=== PATIENT | female | born 1975 | race Hispanic/Latino ===

== ENCOUNTER → 2017-12-06 | Outpatient (CLI) | payer BC | LOC: MAMMO 13:50 | PROVIDERS: ATTEND Obstetrics & Gynecology | DX: Z12.31 Encounter for screening mammogram for malignant neoplasm of breast (principal) | CPT/HCPCS: 77067 ==

== ENCOUNTER → 2018-11-17 | Day surgery (SDC) | payer BC ==
[2018-11-10 16:09] LABS: BILIRUBIN,URINE NEGATIVE (NEGATIVE); CLARITY,URINE SL CLOUDY (CLEAR); COLOR,URINE YELLOW (YELLOW); KETONES,URINE NEGATIVE (NEGATIVE); LEUKOCYTE ESTERASE ,URINE SMALL (NEGATIVE); NITRITE,URINE NEGATIVE (NEGATIVE); PROTEIN,URINE DIPSTICK NEGATIVE (NEGATIVE); URINE UROBILINOGEN 0.2 mg/dL (0.2 - 1)
[2018-11-10 16:10] LABS: BASOPHILS # (AUTO) 0.1 (0.0-0.1); BASOPHILS % 0.9 % (0.0-1.0); EOSINOPHILS # (AUTO) 0.1 (0.0-0.4); EOSINOPHILS % 1.2 % (0.0-6.0); HEMATOCRIT 42.9 % (34.2-44.1); HEMOGLOBIN 13.8 g/dL (12.0-16.0); LYMPHOCYTES # (AUTO) 3.1 (1.0-3.2); LYMPHOCYTES % 34.9 % (18.0-39.1); MEAN CORPUSCULAR HEMOGLOBIN 27.8 pg (28-32); MEAN CORPUSCULAR HGB CONC 32.2 g/dL (31-35); MEAN CORPUSCULAR VOLUME 86.3 fL (81-99); MONOCYTES # (AUTO) 0.5 (0.2-0.8); MONOCYTES % 5.2 % (4.4-11.3); NEUTROPHILS # (AUTO) 5.1 (2.1-6.9); NEUTROPHILS % 57.5 % (38.7-80.0); PLATELET COUNT 310 x10e3/uL (140-360); RED BLOOD COUNT 4.97 x10e6/uL (3.6-5.1); RED CELL DISTRIBUTION WIDTH 13.9 % (11.7-14.4)
[2018-11-10 16:29] LABS: ALANINE AMINOTRANSFERASE 18 IU/L (0-55); ALBUMIN 3.7 g/dL (3.5-5.0); ALBUMIN/GLOBULIN RATIO 0.8 (0.8-2.0); ALKALINE PHOSPHATASE 79 IU/L (40-150); ANION GAP 14.7 mmol/L (8-16); BLOOD UREA NITROGEN 12 mg/dL (7-26); BUN/CREATININE RATIO 18 (6-25); CALCIUM 9.8 mg/dL (8.4-10.2); CARBON DIOXIDE 25 mmol/L (22-29); CHLORIDE 103 mmol/L (98-107); CREATININE, SERUM 0.68 mg/dL (0.57-1.11); EST GLOMERULAR FILTRATION RATE > 60 ML/MIN (60-); GLUCOSE 83 mg/dL (74-118); POTASSIUM 3.7 mmol/L (3.5-5.1); SODIUM 139 mmol/L (136-145)
[~2018-11-17] MED LIST: ACETAMINOPHEN 1000 MG/100 ML IV ONE; BUPIVACAINE 0.25%/EPI 30ML SDV INJ ONE; DESFLURANE 240 ML BTL INH ONE; FENTANYL CITRATE/PF 100MCG/2 ML INJ ONE; IOPAMIDOL 610MG/1ML 300 MG/ML VIAL IV ONE; LIDOCAINE HCL 2% LOCAL INJ 5 ML SDV VIAL INJ ONE; METOCLOPRAMIDE HCL 10 MG/2ML VIAL ONE; MIDAZOLAM HCL 2 MG/2 ML VIAL ONE; ONDANSETRON HCL INJ 2MG/ML 2ML 2 MG/ML VIAL ONE; PROMETHAZINE HCL (IM) 25 MG/ML VIAL ONE; PROPOFOL IV EMULSION 10 MG/ML 20 ML VIAL ONE; ROCURONIUM BROMIDE 10 MG/ML 5ML VIAL ONE; VITAMIN B12 PO; VITAMIN C PO; VITAMIN D PO
--- OUTSIDE RECORDS SUMMARY | 2018-11-17 05:22 | XMS REPORT ---
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 Chriss Chawla MD Special investigations and examinations - Gynecological examination Cervix, screening for malignant neoplasm V76.2 Active Chriss Chawla MD Screening for malignant neoplasms of the cervix Mammogram not high risk screening V76.12 Active Chriss Chawla MD Other screening mammogram Screening examination for venereal disease V74.5 Active Chriss Chawla MD Screening examination for venereal disease Medication List Medication Instructions Start Date Stop Date Generic Name NDC Status Provider Patient Instruction No Drug Therapy Prescribed - none known did ask Paulina Erickson CMA Vital Signs Date Name Value Unit Range Description blood pressure, diastolic 75 mm[Hg] BP cruz blood pressure, systolic 113 mm[Hg] BP sys height E&M 65 [in_us] Bdy height pulse rate E&M 65 /min Heart rate respiratory rate E&M 18 /min Resp rate temperature E&M 98.5 [degF] Body temperature weight E&M 234.38 [lb_av] Weight Measured Diagnostic Results Date Name Value Unit Range Description Lab Report: Ct, Ng, Trich vag by CARLOS - Lab chlamydia DNA probe Negative Negative Lab Report: Ct, Ng, Trich vag by CARLOS - Microbiology Neisseria gonorrhoeae DNA probe Negative Negative Procedures Code Procedure Name Date Entry Date Standard Description CPT-47997 Est Patient Well Exam (40 - 64 Yrs) - 38727 08:50:02 CDT CPT-35889 New Patient Well Exam (40 - 64 Yrs) - 99398 09:18:12 CDT
--- OUTSIDE RECORDS SUMMARY | 2018-11-17 05:22 | XMS REPORT ---
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 Allergies, Adverse Reactions, Alerts This patient has no known allergies or adverse reactions. Medications This patient has no known medications. Results Test Description Test Time Test Comments Text Results Atomic Results Result Comments MAMMOGRAPHY DIGITAL SCR BILAT 2017-12-06 14:43:00 [place] [address] Patient Name: LINDSEY MAX MR #: [id number] : 1975 Age/Sex: 42/F Req #: [id number] [facility] Physician: Ordered by: DORON QUINONES MD Report #: [id number] Location: MAMMO Room/Bed: Procedure: [id number] MG/MAMMOGRAPHY DIGITAL SCR BILAT Exam Date: 12/06/17 Exam Time: 1400 REPORT STATUS: Signed #[id number] - [id number] #BILATERAL DIGITAL SCREENING MAMMOGRAM WITH CAD: 12/06/2017 CLINICAL: Routine screening. Comparison is made to exams dated: 11/25/2016 mammogram and 04/02/2013 mammogram - [facility]. Current study contains 4 films. The tissue of both breasts is heterogeneously dense. This may lower the sensitivity of mammography. Current study was also evaluated with a Computer Aided Detection (CAD) system. There are benign calcifications in both breasts. No significant masses, calcifications, or other findings are seen in either breast. There has been no significant interval change. IMPRESSION: BENIGN There is no mammographic evidence of malignancy. A 1 year screening mammogram is recommended. The patient will be notified by letter of the resu lts. Guera mendez/john:12/12/2017 08:22:37 Transport Analyst: Margo JOY)(M), [facility] letter sent: Compared to Prior B9 Mammogram BI-RADS: 2 Benign Dictated By: GUERA KEEN DO 1 Transcribed By: JOHN on 12/12/17821 COPY TO: DORON QUINONES MD
--- NOTE | 2018-11-17 09:49 | NUR ---
SPIRITUAL CARE - Pre-Surgery Assessment: Pt in bed. Pt's at bedside. Pt reported supportive attention from family and friends. Intervention: I provided pastoral presence, hospitality, and sympathetic listening. I acquainted pt with availability of leasing machine tender while hospitalized. Outcome: Pt expressed appreciation for visit. No need for follow up indicated at this time. JESSE Elamlain Spiritual Care Department O: [phone] Pager: [phone] ([phone] number calling from)
--- NOTE | 2018-11-17 11:17 | Operative Report ---
DATE OF PROCEDURE: SURGEON: Ricardo Angel MD PREOPERATIVE DIAGNOSES: Biliary colic, cholelithiasis, morbid obesity. POSTOPERATIVE DIAGNOSES: Biliary colic, cholelithiasis, morbid obesity. PROCEDURE PERFORMED: Laparoscopic cholecystectomy. ANESTHESIA: General endotracheal. TERMINAL COMPUTER OPERATOR: NYASIA Becerra ESTIMATED BLOOD LOSS: Minimal. DRAINS: None. COMPLICATIONS: None. INDICATION AND FINDINGS: This patient is a 43-year-old female admitted for laparoscopic cholecystectomy because of symptomatic cholelithiasis. The patient was morbidly obese. She had fatty liver infiltration and gallstones by ultrasound. Preoperatively, she had a minor elevation of the transaminases, which returned to normal. I considered doing intraoperative cholangiogram. However, the cystic duct was very very small and nondilated and I decided that it was no worse. The risk of injury of the common duct, attempting to do a cholangiogram in this type of situation with the liver that was very heavy and it was somewhat difficult to access the cystic duct. There were some adhesions of the gallbladder and some small stones consistent with chronic cholecystitis. The liver had fatty liver infiltration. DESCRIPTION OF PROCEDURE: With the patient lying on the operative table in the supine position after administration of general endotracheal anesthesia, she was prepped and draped for laparoscopic cholecystectomy. The procedure was begun by establishing the pneumoperitoneum. First, we attempted the left upper quadrant because she had previous tubal ligation. However, I had some difficulties getting in the right upper quadrant midclavicular line and then created a pneumoperitoneum at the umbilical site after stab wound was made in the location and saline drop test was performed indicating intraperitoneal position of the needle and pneumoperitoneum was insufflated to 15 mm of pressure and then, a 10 mm trocar and camera were placed there. Under direct vision with the camera, I placed a 10 mm subxiphoid port and finally 2 lateral working ports in the right upper quadrant were placed in midclavicular line and right anterior line. The adhesions of the gallbladder to the omentum were sharply lysed. The gallbladder was retracted cephalad. This did contain bile that was clear, had to aspirate it to get good grasp on gallbladder. After I did that, then we began to finish the dissection of the omentum from the gallbladder and then identified the neck of the gallbladder. It was deep and into the liver recess. She had a heavy liver and the cystic duct was very short and nondilated. I decided to forego any cholangiogram and I clipped the cystic duct proximal to the common bile duct twice and once proximally and then transected the cystic artery. Both anterior and posterior branches were transected between the titanium clips and then, the gallbladder was taken down from the liver bed using electrocautery. Dissection of the gallbladder was detached, placed in an endobag and removed through the umbilical port. We inspected the operative field. There was no bile leak, no bleeding, no apparent bowel injury. We irrigated out the right upper quadrant until the effluent was clear and then we released the pneumoperitoneum, closed the wound using #0 Vicryl for the umbilical fascia, 3-0 Vicryl for the subcutaneous tissue in that location as well as the subxiphoid port. The skin of all the ports was closed using alton. 0.25% Marcaine was given as local block at the end of the case. The patient tolerated the procedure well and taken to recovery room in stable condition. MD SRIKANTH Verma/RAGINI /[id number]
[2018-11-17 12:15] VITALS: BP 125/79
== END | disposition home or self-care (01) ==
LOC: OR 05:15
PROVIDERS: ATTEND Surgery
DX: K80.64 Calculus of gallbladder and bile duct with chronic cholecystitis without obstruction (principal); K82.8 Other specified diseases of gallbladder; E66.01 Morbid (severe) obesity due to excess calories; F32.9 Major depressive disorder, single episode, unspecified; Z68.45 Body mass index [BMI] 70 or greater, adult; K21.9 Gastro-esophageal reflux disease without esophagitis; Z87.442 Personal history of urinary calculi; Z88.2 Allergy status to sulfonamides; Z01.810 Encounter for preprocedural cardiovascular examination; Z01.812 Encounter for preprocedural laboratory examination; Z87.891 Personal history of nicotine dependence; Z82.49 Family history of ischemic heart disease and other diseases of the circulatory system
CPT/HCPCS: 36415; 47562; 80053; 81003; 81025; 85025; 88304; 93005; C1766; J0131; J2001; J2250; J2405; J2550; J2704; J2765; J3010

== ENCOUNTER → 2020-06-30 | Outpatient (CLI) | payer OTHER ==
[~2020-06-30] MED LIST changes: -ACETAMINOPHEN 1000 MG/100 ML IV ONE; -BUPIVACAINE 0.25%/EPI 30ML SDV INJ ONE; -DESFLURANE 240 ML BTL INH ONE; -FENTANYL CITRATE/PF 100MCG/2 ML INJ ONE; -IOPAMIDOL 610MG/1ML 300 MG/ML VIAL IV ONE; -LIDOCAINE HCL 2% LOCAL INJ 5 ML SDV VIAL INJ ONE; -METOCLOPRAMIDE HCL 10 MG/2ML VIAL ONE; -MIDAZOLAM HCL 2 MG/2 ML VIAL ONE; -ONDANSETRON HCL INJ 2MG/ML 2ML 2 MG/ML VIAL ONE; -PROMETHAZINE HCL (IM) 25 MG/ML VIAL ONE; -PROPOFOL IV EMULSION 10 MG/ML 20 ML VIAL ONE; -ROCURONIUM BROMIDE 10 MG/ML 5ML VIAL ONE
== END ==
LOC: CT 17:33
PROVIDERS: ATTEND Specialist
DX: N20.0 Calculus of kidney (principal)
CPT/HCPCS: 74176; 81025